=== PATIENT | female | born 1955 | race African-American/Black ===

== ENCOUNTER 2019-01-01 14:49 | Emergency (ER) | payer OTHER ==
[2019-01-01 15:50] VITALS: BP 128/77
--- NOTE | 2019-01-01 15:52 | Event Note ---
ED Screening Note Date of service: 01/01/19 Time: 15:42 ED Screening Note: 63 y/o female comes in for pain in her left leg and right ankle. Patient reports worst when she had to walk alot and she has to walk alot at work. Patient denies any trauma or falls. This initial assessment/diagnostic orders/clinical plan/treatment(s) is/are subject to change based on patients health status, clinical progression and re- assessment by fellow clinical providers in the ED. Further treatment and workup at subsequent clinical providers discretion. Patient/guardian urged not to elope from the ED as their condition may be serious if not clinically assessed and managed. Initial orders include:
--- NOTE | 2019-01-01 16:26 | XRay Report ---
LEFT KNEE, 2 VIEWS INDICATION: Knee pain for one month. COMPARISON: None. IMPRESSION: No acute osseous or soft tissue abnormality. No significant DJD. Signer Name: Kamran Kevin Jr, MD Signed: 01/01/2019 4:22 PM Workstation Name: [id number]
--- NOTE | 2019-01-01 16:32 | Emergency Department Report ---
ED Lower Extremity HPI - General Chief Complaint: Extremity Injury, Lower Stated Complaint: LT KNEE PAIN Time Seen by Provider: 01/01/19 15:42 Source: patient Mode of arrival: Ambulatory Limitations: Language Barrier - History of Present Illness Initial Comments: Mrs. Youssef is a healthy 63 yo female with past medical history of dyslipidemia who presents with left knee pain for one week. She has mild swelling. NO OTC treatment attempted at home. She stands for long periods of time at work. Complaint: other (left knee pain) -: Gradual, month(s) (1) Injury: Knee: Left Type of Injury: other (no trauma) Place: work Severity: mild Improves With: nothing Worsens With: weight bearing Context: other (prolonged standing at work) - Related Data Previous Rx's Medication Instructions Recorded Last Taken Type Ibuprofen [Motrin 400 MG tab] 400 mg PO TID 5 Days #15 tablet 01/01/19 Unknown Rx Allergies Allergy/AdvReac Type Severity Reaction Status Date / Time No Known Allergies Allergy Unverified 01/01/19 15:50 ED Review of Systems ROS: Stated complaint: LT KNEE PAIN Other details as noted in HPI Constitutional: denies: fever Respiratory: denies: cough, shortness of breath Cardiovascular: denies: chest pain Gastrointestinal: denies: abdominal pain, nausea, vomiting Musculoskeletal: joint swelling, arthralgia Skin: denies: rash, lesions, change in color, change in hair/nails ED Past Medical Hx - Past Medical History Previous Medical History?: Yes Hx Diabetes: Yes Additional medical history: hyperlipidemia - Social History Smoking Status: Never Smoker Substance Use Type: None - Medications Home Medications: Home Medications Medication Instructions Recorded Confirmed Last Taken Type Ibuprofen [Motrin 400 MG tab] 400 mg PO TID 5 Days #15 tablet 01/01/19 Unknown Rx ED Physical Exam - General Limitations: Language Barrier (son at the bedside providing interpretation according to the patient's comfort) General appearance: alert, in no apparent distress - Extremities Exam Extremities exam: Present: other (left knee: Full range of motion flexion and extension mild swelling no tenderness no laxity) - Neurological Exam Neurological exam: Present: alert, oriented X3 - Psychiatric Psychiatric exam: Present: normal affect, normal mood - Skin Skin exam: Present: warm, dry, intact, normal color ED Course Vital Signs 01/01/19 15:44 Temperature 98.4 F Pulse Rate 90 Respiratory 16 Rate Blood Pressure 128/77 O2 Sat by Pulse 95 Oximetry ED Lower Extremity MDM - Radiology Data Radiology results: image reviewed interpreted by me: I personally reviewed the radiographs of the left knee: Two-view. Mild degenerative changes. - Medical Decision Making 1 month due to DJD and prolonged standing at work. Refer to orthopedic surgeon. Prescribed ibuprofen. Critical care attestation.: If time is entered above; I have spent that time in minutes in the direct care of this critically ill patient, excluding procedure time. ED Disposition Clinical Impression: Left knee pain, Left knee DJD Disposition: DC- TO HOME OR SELFCARE Is pt being admited?: No Does the pt Need Aspirin: No Condition: Stable Instructions: Osteoarthritis (ED) Prescriptions: Ibuprofen [Motrin 400 MG tab] 400 mg PO TID 5 Days #15 tablet Referrals: SAROJ KYLE MD [Staff Physician] - 3-5 Days Forms: Work/School Release Form(ED)
== END 2019-01-01 17:14 | disposition home or self-care (01) ==
LOC: ED 14:49
DX: M17.12 Unilateral primary osteoarthritis, left knee (principal); E11.9 Type 2 diabetes mellitus without complications; E78.5 Hyperlipidemia, unspecified